=== PATIENT | female | born 1965 | race Hispanic/Latino ===

== ENCOUNTER 2018-07-07 01:19 | Emergency (ER) | payer BC ==
[2018-07-07] MEDS ORDERED: IBUPROFEN PO ONE (05:46)
--- NOTE | 2018-07-07 05:54 | Emergency Department Report ---
ED Fall HPI - General Chief Complaint: Fall Stated Complaint: FALL Time Seen by Provider: 07/07/18 05:45 Source: patient Mode of arrival: Ambulatory - History of Present Illness Initial Comments: 53-year-old female comes to the emergency room stating that she had a fall several weeks ago and comes in for pain that progressively getting worse and her right shoulder and bilateral knees. He said reports that the pain is sharp. Patient reports that the pain is worse with doing anything such as bending standing up sitting down. Patient reports that the right shoulder is painful to lift but is able to. Patient has past medical history of hypertension diabetes. 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 Fall Occurred: home Loss of Consciousness: none Prolonged Down Time?: no Symptoms Prior to Fall: none Location - Extremities: Left: Knee, Right: Shoulder, Knee Severity: severe Severity scale (0 -10): 7 Quality: sharp, aching Associated Symptoms: denies: headache, neck pain, numbness, shortness of breath, lightheaded - Related Data Previous Rx's Medication Instructions Recorded Last Taken Type Naproxen [Naprosyn] 500 mg PO BID PRN #20 tablet 07/07/18 Unknown Rx Allergies Allergy/AdvReac Type Severity Reaction Status Date / Time No Known Allergies Allergy Verified 07/07/18 01:25 ED Review of Systems ROS: Stated complaint: FALL Other details as noted in HPI Comment: All other systems reviewed and negative Gastrointestinal: denies: abdominal pain, nausea, diarrhea Musculoskeletal: arthralgia ED Past Medical Hx - Past Medical History Previous Medical History?: Yes Hx Diabetes: Yes - Surgical History Past Surgical History?: Yes Additional Surgical History: hyster - Social History Smoking Status: Never Smoker Substance Use Type: None - Medications Home Medications: Home Medications Medication Instructions Recorded Confirmed Last Taken Type Naproxen [Naprosyn] 500 mg PO BID PRN #20 tablet 07/07/18 Unknown Rx ED Physical Exam - General Limitations: No Limitations General appearance: obese - Head Head exam: Present: atraumatic, normocephalic - Eye Eye exam: Present: normal appearance - ENT ENT exam: Present: mucous membranes moist - Neck Neck exam: Present: normal inspection - Extremities Exam Extremities exam: Present: full ROM (knees, ), tenderness (bilateral knees ). Absent: pedal edema, joint swelling, calf tenderness - Neurological Exam Neurological exam: Present: alert, oriented X3 - Psychiatric Psychiatric exam: Present: normal affect, normal mood - Skin Skin exam: Present: warm, dry, intact, normal color. Absent: rash ED Course Vital Signs 07/07/18 01:23 Temperature 97.9 F Pulse Rate 78 Respiratory 18 Rate Blood Pressure 157/81 O2 Sat by Pulse 95 Oximetry ED Medical Decision Making - Radiology Data Radiology results: report reviewed Patient: CAMDEN SHIRLEY MR#: [id number] : 1965 Acct:[id number] Age/Sex: 53 / F ADM Date: 07/07/18 Loc: ED Attending Dr: Ordering Physician: CHRISTEN DAVALOS Date of Service: 07/07/18 Procedure(s): XR shoulder 2+V RT Accession Number(s): [id number] cc: CHRISTEN DAVALOS Fluoro Time In Minutes: PROCEDURE: XR SHOULDER 2+V RT TECHNIQUE: 3 views of the right shoulder were submitted. HISTORY: fall shoulder hurt COMPARISONS: None FINDINGS: There are mild arthritic changes of the AC joint. The glenohumeral joint appears intact. The subacromial space appears normal. There is no evidence of fracture. The soft tissues otherwise are well-maintained. IMPRESSION: Mild AC joint arthrosis. No acute injury.. This document is electronically signed by Abdullahi Castle MD., Jul 07 2018 06: 20:48 AM ET Transcribed By: RB Dictated By: ABDULLAHI CASTLE MD Electronically Authenticated By: ABDULLAHI CASTLE MD Signed Date/Time: 07/07/18621 DD/ 06 TD/TT: 07/07/18 0608 Patient: CAMDEN SHIRLEY MR#: [id number] : 1965 Acct:[id number] Age/Sex: 53 / F ADM Date: 07/07/18 Loc: ED Attending Dr: Ordering Physician: CHRISTEN DAVALOS Date of Service: 07/07/18 Procedure(s): XR knee BILAT 1-2V Accession Number(s): [id number] cc: CHRISTEN DAVALOS Fluoro Time In Minutes: PROCEDURE: XR KNEE BILAT 1-2V TECHNIQUE: AP and lateral views of both knees HISTORY: fall both knees hurt COMPARISONS: None FINDINGS: Mild tricompartmental osteoarthrosis in both knees without periarticular fracture, joint effusion or gross malalignment. IMPRESSION: No acute findings in either knee. Mild osteoarthrosis.. This document is electronically signed by Julio Cesar Kowalski MD., Jul 07 2018 06:18:59 AM ET Transcribed By: MB Dictated By: JULIO CESAR KOWALSKI MD Electronically Authenticated By: JULIO CESAR KOWALSKI MD Signed Date/Time: 07/07/18620 DD/ TD/TT: 07/07/18601 - Medical Decision Making Please continue with Aleve or ibuprofen for pain management. X-rays were negative. I will refer you to an orthopedic provider for further evaluation. Please continue to follow up with her primary care provider for your chronic disease management. Critical care attestation.: If time is entered above; I have spent that time in minutes in the direct care of this critically ill patient, excluding procedure time. ED Disposition Clinical Impression: Bilateral anterior knee pain, Right anterior shoulder pain, Morbid obesity with BMI of 50.0-59.9, adult Disposition: DC-01 TO HOME OR SELFCARE Is pt being admited?: No Does the pt Need Aspirin: No Condition: Stable Instructions: Arthralgia (ED), Obesity (ED) Additional Instructions: Take pain medication as needed. X-rays did not show any acute abnormalities. Follow-up with orthopedic provider or your primary care provider for further evaluation. Prescriptions: Naproxen [Naprosyn] 500 mg PO BID PRN #20 tablet PRN Reason: Pain , Severe (7-10) Referrals: ABDULLAHI MERCHANT MD [Staff Physician] - 3-5 Days
--- NOTE | 2018-07-07 06:21 | XRay Report ---
PROCEDURE: XR KNEE BILAT 1-2V TECHNIQUE: AP and lateral views of both knees HISTORY: fall both knees hurt COMPARISONS: None FINDINGS: Mild tricompartmental osteoarthrosis in both knees without periarticular fracture, joint effusion or gross malalignment. IMPRESSION: No acute findings in either knee. Mild osteoarthrosis.. This document is electronically signed by Julio Cesar Leonardo MD., Jul 07 2018 06:18:59 AM ET
--- NOTE | 2018-07-07 06:22 | XRay Report ---
PROCEDURE: XR SHOULDER 2+V RT TECHNIQUE: 3 views of the right shoulder were submitted. HISTORY: fall shoulder hurt COMPARISONS: None FINDINGS: There are mild arthritic changes of the AC joint. The glenohumeral joint appears intact. The subacrom ial space appears normal. There is no evidence of fracture. The soft tissues otherwise are well-maint ained. IMPRESSION: Mild AC joint arthrosis. No acute injury.. This document is electronically signed by Timmy Castle MD., Jul 07 2018 06:20:48 AM ET
[2018-07-07 07:24] VITALS: BP 150/80
== END 2018-07-07 07:22 | disposition home or self-care (01) ==
LOC: ED 01:19
DX: M25.511 Pain in right shoulder (principal); M25.561 Pain in right knee; M25.562 Pain in left knee; E11.9 Type 2 diabetes mellitus without complications; E66.01 Morbid (severe) obesity due to excess calories; Z68.43 Body mass index [BMI] 50.0-59.9, adult; Z90.710 Acquired absence of both cervix and uterus
CPT/HCPCS: 99283

== ENCOUNTER 2018-10-26 20:58 | Emergency (ER) | payer BC ==
[2018-10-26] MEDS ORDERED: MORPHINE IV ONE (21:34)
[2018-10-26] MEDS ORDERED: ZOFRAN IV ONE (21:34)
[2018-10-26 21:58] LABS: Basophils % (Auto) 0.2 % (0.0-1.8); Eosinophils % (Auto) 0.2 % (0.0-4.3); Hematocrit 54.2 % (30.3-42.9); Hemoglobin 17.8 gm/dl (10.1-14.3); Lymphocytes # (Auto) 1.2 K/mm3 (1.2-5.4); Lymphocytes % (Auto) 6.3 % (13.4-35.0); Mean Corpuscular HGB Conc 33 % (30-34); Mean Corpuscular Volume 93 fl (79-97); Monocytes # (Auto) 1.3 K/mm3 (0.0-0.8); Platelet Count 402 K/mm3 (140-440); Red Blood Count 5.86 M/mm3 (3.65-5.03); Red Cell Distribution Width 13.6 % (13.2-15.2)
[2018-10-26 22:20] LABS: Albumin 4.9 g/dL (3.9-5); Calcium 11.3 mg/dL (8.4-10.2)
[2018-10-26 22:22] LABS: Bilirubin,Direct 0.2 mg/dL (0-0.2)
--- NOTE | 2018-10-26 23:14 | Cat Scan Report ---
CT abdomen pelvis w con INDICATION: Abdominal Pain N/V/D. TECHNIQUE: All CT scans at this location are performed using the following dose modulation technique: Automated exposure control. CONTRAST: Knee pain 300, 100 cc IV injection. COMPARISON: None available. CT abdomen: The parenchymal organs are unremarkable in appearance other than mild fatty infiltration of the liver and a well-circumscribed right adrenal nodule measuring 1.7 cm. Negative for abdominal m ass, fluid or inflammation. The large and small bowel contain fluid but demonstrate no thickening. CT PELVIS: Negative for mass, fluid or inflammation. Status post previous hysterectomy. IMPRESSION: 1. Gastroenteritis-type process. 2. Fatty liver. 3. Probable incidental right adrenal adenoma. Signer Name: Glynn Hanks MD Signed: 10/26/2018 11:09 PM Workstation Name: [id number]
[2018-10-27] MEDS ORDERED: LEVAQUIN PO ONE (00:40)
--- NOTE | 2018-10-27 00:45 | Emergency Department Report ---
ED Abdominal Pain HPI - General Chief Complaint: Abdominal Pain Stated Complaint: EMESIS/ABD PAIN Time Seen by Provider: 10/26/18 21:34 Source: patient, EMS Mode of arrival: Stretcher Limitations: Physical Limitation - History of Present Illness Initial Comments: Mrs. Camp is a 53-year-old female with history of hypertension, diabetes mellitus, dyslipidemia who presents with severe periumbilical pain radiating to the suprapubic region. The pain began this evening. This morning she ate fast food at a taco restaurant. She ate salad for dinner at a friend's home. Denies vomiting but she does have nausea. Denies fever. She has generalized malaise. While in the emergency Department she's been incontinent of diarrhea. MD Complaint: abdominal pain -: Sudden, This evening Location: periumbilical Radiation: suprapubic Severity scale (0 -10): 3 Quality: sharp Consistency: constant Improves With: nothing Worsens With: nothing Associated Symptoms: diarrhea - Related Data Previous Rx's Medication Instructions Recorded Last Taken Type Naproxen [Naprosyn] 500 mg PO BID PRN #20 tablet 07/07/18 Unknown Rx Ciprofloxacin HCl [Ciprofloxacin 500 mg PO Q12HR 7 Days #14 tab 10/27/18 Unknown Rx TAB] Loperamide [Imodium] 2 tab PO QID 2 Days #16 capsule 10/27/18 Unknown Rx Allergies Allergy/AdvReac Type Severity Reaction Status Date / Time No Known Allergies Allergy Verified 07/07/18 01:25 ED Review of Systems ROS: Stated complaint: EMESIS/ABD PAIN Other details as noted in HPI Comment: All other systems reviewed and negative Constitutional: malaise. denies: chills, fever Cardiovascular: denies: chest pain Gastrointestinal: abdominal pain, nausea, diarrhea Musculoskeletal: denies: back pain ED Past Medical Hx - Past Medical History Previous Medical History?: Yes Hx Diabetes: Yes - Surgical History Past Surgical History?: Yes Additional Surgical History: hyster - Social History Smoking Status: Never Smoker Substance Use Type: None - Medications Home Medications: Home Medications Medication Instructions Recorded Confirmed Last Taken Type Naproxen [Naprosyn] 500 mg PO BID PRN #20 tablet 07/07/18 Unknown Rx Ciprofloxacin HCl [Ciprofloxacin 500 mg PO Q12HR 7 Days #14 tab 10/27/18 Unknown Rx TAB] Loperamide [Imodium] 2 tab PO QID 2 Days #16 capsule 10/27/18 Unknown Rx ED Physical Exam - General Limitations: Physical Limitation General appearance: alert, in no apparent distress, other (appears uncomfortable) - Head Head exam: Present: atraumatic, normocephalic - Eye Eye exam: Present: normal appearance - ENT ENT exam: Present: mucous membranes moist - Neck Neck exam: Present: normal inspection, full ROM - Respiratory Respiratory exam: Present: normal lung sounds bilaterally. Absent: respiratory distress, wheezes, rales, rhonchi - Cardiovascular Cardiovascular Exam: Present: regular rate, normal rhythm, normal heart sounds. Absent: systolic murmur, diastolic murmur, rubs, gallop - GI/Abdominal GI/Abdominal exam: Present: soft, normal bowel sounds. Absent: distended, tenderness, guarding, rebound - Extremities Exam Extremities exam: Present: normal inspection - Back Exam Back exam: Present: normal inspection - Neurological Exam Neurological exam: Present: alert, oriented X3 - Psychiatric Psychiatric exam: Present: normal affect, normal mood - Skin Skin exam: Present: warm, dry, intact, normal color. Absent: rash ED Course Vital Signs 10/26/18 10/26/18 10/26/18 21:24 21:28 21:31 Temperature 96.9 F L Pulse Rate 89 89 Respiratory 18 27 H Rate Blood Pressure 101/86 Blood Pressure [Right] O2 Sat by Pulse 99 95 95 Oximetry 10/26/18 10/26/18 10/26/18 21:45 22:01 22:15 Temperature Pulse Rate 87 87 90 Respiratory 25 H 13 16 Rate Blood Pressure 109/68 147/118 147/118 Blood Pressure [Right] O2 Sat by Pulse 95 92 93 Oximetry 10/26/18 10/26/18 10/27/18 22:30 23:25 00:19 Temperature Pulse Rate 92 H 94 H Respiratory 16 29 H 19 Rate Blood Pressure 107/64 119/72 Blood Pressure [Right] O2 Sat by Pulse 85 Oximetry 10/27/18 00:27 Temperature Pulse Rate 87 Respiratory 16 Rate Blood Pressure Blood Pressure 107/63 [Right] O2 Sat by Pulse 95 Oximetry ED Medical Decision Making - Lab Data Result diagrams: 10/26/18 21:47 10/26/18 21:46 Laboratory Results - last 24 hr 10/26/18 10/26/18 10/26/18 21:39 21:46 21:47 WBC 19.1 H RBC 5.86 H Hgb 17.8 H Hct 54.2 H MCV 93 MCH 30 MCHC 33 RDW 13.6 Plt Count 402 Lymph % (Auto) 6.3 L [place] % (Auto) 7.0 Eos % (Auto) 0.2 Baso % (Auto) 0.2 Lymph # 1.2 [place] # 1.3 H Eos # 0.0 Baso # 0.0 Seg Neutrophils % 86.3 H Seg Neutrophils # 16.5 H Sodium 133 L Potassium 4.6 Chloride 92.6 L Carbon Dioxide 17 L Anion Gap 28 BUN 24 H Creatinine 1.0 Estimated GFR 58 BUN/Creatinine Ratio 24 Glucose 284 H Calcium 11.3 H Total Bilirubin 0.40 Direct Bilirubin 0.2 Indirect Bilirubin 0.2 AST 18 ALT 25 Alkaline Phosphatase 137 H Total Protein 9.2 H Albumin 4.9 Albumin/Globulin Ratio 1.1 Lipase 50 HCG, Qual Negative - Radiology Data Radiology results: report reviewed CT abdomen and pelvis: Large and small bowel containing fluid with no thickening, no inflammatory process, radiology impression gastroenteritis type process with fatty liver probable incidental right adrenal adenoma - Medical Decision Making Upon arrival, Mrs. Camp had a copious amount of diarrhea with strong odor. Clinical impression food poisoning as corroborated by CT scan. I performed serial abdominal exams. She did not have tenderness to indicate peritonitis. I do not suspect appendicitis or acute inflammatory process which needs emergent care. I do suspect food poisoning. She was prescribed 3 days of ciprofloxacin. She did not have recent hospitalization or antibiotic therapy to indicate C. difficile colitis. I review labs notable for leukocytosis 19,000 WBC count, mild metabolic acidosis due to volume contraction. She received IV fluid therapy in emergency department. Discharged home with prescription for Imodium and ciprofloxacin Critical care attestation.: If time is entered above; I have spent that time in minutes in the direct care of this critically ill patient, excluding procedure time. ED Disposition Clinical Impression: Food poisoning Disposition: DC-01 TO HOME OR SELFCARE Is pt being admited?: No Does the pt Need Aspirin: No Condition: Stable Instructions: Food Poisoning (ED), Acute Diarrhea (ED) Prescriptions: Ciprofloxacin HCl [Ciprofloxacin TAB] 500 mg PO Q12HR 7 Days #14 tab Loperamide [Imodium] 2 tab PO QID 2 Days #16 capsule Referrals: JORDAN MAYER MD [Primary Care Provider] - 3-5 Days
[2018-10-27 02:23] VITALS: BP 110/63
== END 2018-10-27 01:40 | disposition home or self-care (01) ==
LOC: ED 20:58
DX: T62.8X1A Toxic effect of other specified noxious substances eaten as food, accidental (unintentional), initial encounter (principal); E11.9 Type 2 diabetes mellitus without complications; K52.1 Toxic gastroenteritis and colitis; R10.33 Periumbilical pain; R11.0 Nausea; I10 Essential (primary) hypertension; R78.5 Finding of other psychotropic drug in blood; Z90.710 Acquired absence of both cervix and uterus; Y92.511 Restaurant or cafe as the place of occurrence of the external cause
CPT/HCPCS: 36415; 74177; 80048; 80076; 83690; 84703; 85025; 96374; 96375; 99285; J2270; J2405; Q9967